=== PATIENT | male | born 1950 | race Caucasian/White ===

== ENCOUNTER 2018-07-15 06:19 | Day surgery (SDC) | payer OTHER ==
--- NOTE | 2018-07-14 12:20 | PREOPHP ---
DATE OF ADMISSION: 07/15/2018 HISTORY OF PRESENT ILLNESS: A 68-year-old patient is admitted for elective cataract surgery of the r ight eye. The patient has had decreased vision over the last year in that eye and in 2014, underwent cataract surgery of the left eye with excellent visual result. The patient denies any other history of eye disease or injury. PAST MEDICAL HISTORY: The patient does have history of noninsulin dependent diabetes mellitus, hyper cholesterolemia and neuropathy. CURRENT MEDICATIONS: Include: 1. Metformin. 2. Janumet. 3. Irbesartan. 4. . 5. Metoprolol. 6. Gabapentin. 7. Amlodipine. ALLERGIES: THERE ARE NO KNOWN ALLERGIES. PHYSICAL EXAMINATION: The visual acuity is 20/200 in the right eye and 20/20 in the left eye with sp ectacle correction. Slit lamp examination reveals a small nasal pterygium in the right eye. The pat ient also has anterior cortical and posterior subcapsular cataract of a diffuse nature in the right e ye. The left eye has a posterior chamber intraocular lens in appropriate position. Applanation chris metry is 14 mmHg. Examination of the retina is within normal limits without evidence of diabetic ret inopathy. DIAGNOSIS: Combined cortical and posterior subcapsular cataract, right eye. PLAN: Cataract extraction with lens implant, right eye. The risks and alternatives to the surgery h ave been discussed with the patient as well as the hope for improvement of visual acuity leading to g reater ability to perform activities of daily living. The patient understands this and agrees to pro ceed with surgery. Dictated By: DYLON GUTIERREZ/JOHN Conf#: [id number] DID#: [id number]
[2018-07-15] VITALS (10 sets, daily range): BP systolic 127–158; BP diastolic 61–74; PULSE 56–64; RESP 11–18; Ht 180.3 cm; Wt 88.1 kg
[~2018-07-15] VITALS: Ht 180.3 cm; Wt 88.1 kg
[~2018-07-15 06:19] MED LIST: ALPR0.254 PO; AMLO-218 PO; ATEN50TA PO; BENA40TA56 PO; CLON0.2T5 PO; DUTA0.5C PO; GABA300C16 PO; GLIP10TA14 PO; HYDR50TA3 PO; IBUP800T48 PO; IRBE300T13 PO; SITA1TAB7 PO; TAMS-14 PO
[2018-07-15] MEDS ORDERED: ASPI81TA52 PO (07:19)
[2018-07-15] MEDS ORDERED: METO-407 PO (07:20)
[2018-07-15] MEDS ORDERED: OXYB5TAB22 PO (07:20)
[2018-07-15] MEDS ORDERED: SITA1TAB5 PO (07:20)
[2018-07-15] MEDS ORDERED: HYDR100T25 PO (07:21)
[2018-07-15] MEDS ORDERED: GABA300C16 PO (07:21)
[2018-07-15] MEDS ORDERED: IRBE300T15 PO (07:22)
[2018-07-15] MEDS ORDERED: AMLO-147 PO (07:22)
[2018-07-15] MEDS ORDERED: GLIP10TA14 PO (07:23)
[2018-07-15] MEDS ORDERED: TAMS0.4C2 PO (07:23)
[2018-07-15] MEDS ORDERED: DICLOFENAC 0.1% 2.5 ML OPH OPER SCH (07:30)
[2018-07-15] MEDS ORDERED: CYCLOPENTOLATE/PHENYLEPH 2 ML OPH OPER SCH (07:30)
[2018-07-15] MEDS ORDERED: SOD CHLORIDE 0.9% 1,000 ML IV SCH (07:30)
[2018-07-15] MEDS ORDERED: MOXIFLOXACIN 0.5% 3 ML OPH OPER SCH (07:30)
[2018-07-15] MEDS ORDERED: TROPICAMIDE 1% 15 ML OPH OPER SCH (07:30)
[2018-07-15] MEDS ORDERED: CEFAZOLIN 1 GM INJ ONE (08:16)
[2018-07-15] MEDS ORDERED: CARBACHOL 0.01% 1.5 ML OPH INJ ONE (08:16)
[2018-07-15] MEDS ORDERED: LIDOCAINE 4% (MPF) 5 ML INJ ONE (08:16)
[2018-07-15] MEDS ORDERED: NA HYALURONATE/CHONDROITIN 0.5 ML SYG ONE (08:16)
[2018-07-15] MEDS ORDERED: DEXAMETHASONE 4 MG/ML 1 ML INJ ONE (08:16)
--- NOTE | 2018-07-15 08:25 | PREAC ---
Date/Time of Note Date/Time of Note DATE: 07/15/18 TIME: 08:24 Anesthesia Eval and Record Evaluation Time Pre-Procedure Interview DATE: 07/15/18 TIME: 08:24 Age 68 Sex male NPO: 8 hrs Preoperative diagnosis Right Eye Cataract Planned procedure Right Eye Cataract Extraction and IOL Implant Past Medical History Past Medical History: Includes Cardio: HTN Endo: Diabetes Surgery & Anesthesia Issues No known issue Meds Anticoagulation: No Beta Brigida within 24 hr: No Reason Beta Brigida not given: Pt. not on B-Brigida Reported Medications Glipizide* (Glipizide*) 10 Mg Tablet, 10 MG PO BID, TAB 07/15/18 Tamsulosin Hcl* (Tamsulosin Hcl*) 0.4 Mg Cap.er.24h, 0.4 MG PO HS, CAP 07/15/18 Irbesartan* (Irbesartan*) 300 Mg Tablet, 300 MG PO DAILY, TAB 07/15/18 Amlodipine Besylate* (Amlodipine Besylate*) 10 Mg Tablet, 10 MG PO DAILY, #30 TAB 07/15/18 Gabapentin* (Gabapentin*) 300 Mg Capsule, 300 MG PO TID, #90 CAP 07/15/18 Hydralazine Hcl* (Hydralazine Hcl*) 100 Mg Tablet, 100 MG PO TID, #90 TAB 07/15/18 Sitagliptin Phos/Metformin HCl (Janumet 50-1,000 mg Tablet) 1 Each Tablet, 1 EACH PO BID, TAB 07/15/18 Metoprolol Tartrate* (Lopressor*) 100 Mg Tablet, 100 MG PO BID, #60 TAB 07/15/18 Oxybutynin Chloride* (Ditropan* XL) 5 Mg Tabsr, 5 MG PO DAILY, TAB.SA 07/15/18 Aspirin (Low Dose Aspirin) 81 Mg Tablet.dr, 81 MG PO DAILY, #30 TAB 07/15/18 Discontinued Reported Medications Amlodipine Besylate* (Norvasc*) 10 Mg Tablet, 10 MG PO DAILY, TAB 08/31/14 Sitagliptin Phos-Metformin Hcl (Janumet) 50-1,000 Mg Tablet, 1 TAB PO BID, TAB 08/31/14 Ibuprofen* (Motrin*) 800 Mg Tab, 800 MG PO Q6, TAB 08/31/14 Hydrochlorothiazide* (Hydrochlorothiazide*) 50 Mg Tab, 50 MG PO DAILY, TAB 08/31/14 Glipizide* (Glipizide*) 10 Mg Tablet, 10 MG PO BID, TAB 08/31/14 Gabapentin* (Gabapentin*) 300 Mg Capsule, 300 MG PO QID, CAP 08/31/14 Tamsulosin Hcl* (Flomax*) 0.4 Mg Cap.er.24h, 0.4 MG PO DAILY, CAP 08/31/14 Clonidine Hcl* (Clonidine Hcl*) 0.2 Mg Tablet, 0.2 MG PO BID PRN for BLOOD PRESSURE SUPPORT, TAB 08/31/14 Benazepril Hcl* (Benazepril Hcl*) 40 Mg Tablet, 40 MG PO DAILY, TAB 08/31/14 Dutasteride* (Avodart*) 0.5 Mg Capsule, 0.5 MG PO DAILY, CAP 08/31/14 Irbesartan* (Avapro*) 300 Mg Tablet, 300 MG PO DAILY, TAB 08/31/14 Atenolol* (Atenolol*) 50 Mg Tablet, 50 MG PO BID, TAB 08/31/14 Alprazolam* (Alprazolam*) 0.25 Mg Tablet, 0.25 MG PO HS, TAB 08/31/14 Current Medications Diclofenac Sodium (Voltaren 0.1%) 1 drop Q5 MIN X 3 OPER Last administered on 07/15/18at 07:41; Admin Dose 1 DROP; Start 07/15/18 at 07:30; Stop 07/15/18 at 16:00 Tropicamide (Mydriacyl 1%) 1 drop Q5 MIN X3 OPER Last administered on 07/15/18at 07:41; Admin Dose 1 DROP; Start 07/15/18 at 07:30; Stop 07/15/18 at 16:00 Moxifloxacin HCl (Vigamox) 1 drop Q5 MIN X 3 OPER Last administered on 07/15/18at 07:40; Admin Dose 1 DROP; Start 07/15/18 at 07:30; Stop 07/15/18 at 1 6:00 Cyclopentolate/ Phenylephrine (Cyclomydril Oph 2 ml) 1 drop Q5 MIN X 3 OPER Last administered on 07/15/18at 07:40; Admin Dose 1 DROP; Start 07/15/18 at 07:30; Stop 1/29/19 at 16:00 Sodium Chloride 1,000 ml @ 25 mls/hr Q24H IV ; Start 07/15/18 at 07:30; Stop 07/15/18 at 16:00 Meds reviewed: Yes Allergies Coded Allergies: No Known Allergy (Unverified , 07/15/18) Allergies Reviewed: Yes Labs/Studies Labs Reviewed: Reviewed by anesthesiologist test: N/A Studies: ECG (NSR), CXR (n/a) Pre-procedure Exam Last vitals Vital Signs Date Temp Pulse Resp B/P (MAP) Pulse Ox O2 O2 Flow FiO2 Time Delivery Rate 07/15/18 97.7 64 18 158/74 97 Room Air 08:02 (102) Airway: Adequate mouth opening, Adequate thyromental dist Mallampati: Mallampati II Teeth: Normal Lung: Normal Heart: Normal ASA Physical Status ASA physical status: 3 Emergency: None Planned Anesthetic General/MAC: MAC Planned Pain Management Parenteral pain med Pre-operative Attestations Prior to commencing anesthesia and surgery, the patient was re-evaluated, there was verification of: *The patient's identity *The results of appropriate recent lab work and preoperative vital signs *The above evaluation not changing prior to induction *Anesthetic plan, risk benefits, alternative and complications discussed with patient/family; questions answered; patient/family understands, accepts and wishes to proceed. DANNY JOE MD Jul 15, 2018 08:25
[2018-07-15] MEDS ORDERED: EPHEDrine SULFATE 50 MG/5 ML SYG IV PRN (08:30)
[2018-07-15] MEDS ORDERED: HYDROmorphONE 1 MG/5 ML IV SYRINGE IV PRN ×2 (08:30)
[2018-07-15] MEDS ORDERED: hydrALAzine 20 MG INJ IV PRN (08:30)
[2018-07-15] MEDS ORDERED: FENTAnyl 50 MCG/ML VIAL IV PRN ×2 (08:30)
[2018-07-15] MEDS ORDERED: OXYCODONE/ACETAMINOPHEN (5/325) TAB PO PRN (08:30)
[2018-07-15] MEDS ORDERED: LABETALOL HCL 20MG INJ IV PRN (08:30)
[2018-07-15] MEDS ORDERED: ONDANSETRON 4 MG INJ IV PRN (08:30)
[2018-07-15] MEDS ORDERED: METOCLOPRAMIDE 10 MG INJ IV PRN (08:30)
[2018-07-15] MEDS ORDERED: PROPOFOL 20 ML ONE (08:46)
[2018-07-15] MEDS ORDERED: METOCLOPRAMIDE 10 MG INJ ONE (08:46)
[2018-07-15] MEDS ORDERED: ONDANSETRON 4 MG INJ ONE (08:46)
--- NOTE | 2018-07-15 09:13 | SIPON ---
Date/Time of Note Date/Time of Note DATE: 07/15/18 TIME: 09:12 Operative Report Preoperative Diagnosis cortical and posterior subcapsular cataract od Postoperative Diagnosis same Operation/Procedure Performed cataract extraction with lens implant od Surgeon dylon hussein assistant operations manager none Anesthesia: MAC Estimated blood loss: none Transfusion Required none Specimen none Grafts/Implants posterior chamber lens implant Complications none DYLON HUSSEIN MD Jul 15, 2018 09:13
--- NOTE | 2018-07-15 09:33 | PAC ---
Date/Time of Note Date/Time of Note DATE: 07/15/18 TIME: 09:33 Post-Anesthesia Notes Post-Anesthesia Note Last documented vital signs Vital Signs Date Temp Pulse Resp B/P (MAP) Pulse Ox O2 O2 Flow FiO2 Time Delivery Rate 07/15/18 97.7 64 18 158/74 97 Room Air 09:32 (102) Activity: WNL Respiratory function: WNL Cardiovascular function: WNL Mental status: Baseline Pain reasonably controlled: Yes Hydration appropriate: Yes Nausea/Vomiting absent: Yes DANNY JOE MD Jul 15, 2018 09:33
--- NOTE | 2018-07-15 10:33 | NUR ---
THE PT ALERT AND ORIENTED VITAL SIGNS WITHIN NORMAL LIMITS, NO PAIN OR DISCOMFORT REPORTED D/C INSTRUCTIONS PROVIDED TO PT AND FAMILY, VERBALIZED UNDERSTANDING AND READINESS TO GO HOME INCISION SITE: DRY CLEAN AND INTACT
--- NOTE | 2018-07-15 11:43 | OPR ---
DATE OF OPERATION: 07/15/2018 PREOPERATIVE DIAGNOSIS: Cortical and nuclear sclerotic cataract, right eye. POSTOPERATIVE DIAGNOSIS: Cortical and nuclear sclerotic cataract, right eye. OPERATION PERFORMED: Cataract extraction with lens implant, right eye. SURGEON: Dylon Thurman MD ANESTHESIA: Local standby. ANESTHESIOLOGIST: Umberto Monroe MD PROCEDURE: The patient was brought to the operating room and placed on the table with an IV in place and the patient attached to an enterprise applications manager. Oxygen was given via face mask. After some intravenous sedation was administered, local anesthesia was given using Xylocaine 2% with epinephrine, mixed with Marcaine 0.5%. This was given in a lid block and retrobulbar injection. The p atient was then prepped and draped in the usual sterile manner. A wire lid speculum was inserted between the lids of the right eye. A Superblade was used to enter th e anterior chamber at the corneoscleral limbus at the 10:30 o'clock position. A separate incision was made using a 3.0-mm keratome which entered the corneoscleral junction at the 12 o'clock position. Th rough this 3-mm opening, an irrigating cystotome was introduced into the anterior chamber. The chambe r was filled with Viscoat and an anterior capsulotomy was performed. Balanced salt solution was then used for hydrodissection of the lens. A phacoemulsification handpiece was then brought into the fiel d and introduced into the anterior chamber. The lens nucleus was emulsified using a deep groove and c racking the nucleus into quadrants. Following this, each quadrant was aspirated and emulsified at the pupillary margin. After this was completed, the irrigation/aspiration handpiece was brought to the field, introduced in to the posterior chamber, and the lens cortical material was removed. When this was completed, additi onal Viscoat was injected into the anterior and posterior chambers. The 3-mm opening had its internal lips enlarged, and then the posterior chamber intraocular lens elie uring 21.0 diopters ([employer] Model LI61AO) was then injected into the posterior c hamber using the lens injector system. After the leading haptic was introduced into the capsular bag and the lens optic was present in the center of the eye, the injector was removed and the trailing abdullahi ptic was grasped with non-toothed forceps and introduced into the capsular fold superiorly. A Sinskey hook was then used to rotate the intraocular lens so that the lips were oriented in the horizontal m eridian. One 10-0 nylon suture was placed across the wound. Prior to tying, the irrigation/aspiration handpiece was reintroduced into the anterior chamber to rem ove the Viscoat. Miochol was instilled to constrict the pupil, and then the 10-0 nylon suture was tie d. The ends were cut short and then the knot was buried. Then, 0.5 mL of dexamethasone and 0.5 mL of Ancef were injected into the sub-Tenon space in the infer ior fornix. Ciloxan drops were then placed on the surface of the eye. The speculum was removed and a patch was applied. The patient then left the operating room in satisfactory condition. Dictated By: DYLON GUTIERREZ/JOHN Conf#: [id number] DID#: [id number]
== END 2018-07-15 10:20 | disposition home or self-care (01) ==
LOC: SDS 06:19
PROVIDERS: ATTEND Ophthalmology
DX: H25.11 Age-related nuclear cataract, right eye (principal); I10 Essential (primary) hypertension; E11.9 Type 2 diabetes mellitus without complications; Z79.82 Long term (current) use of aspirin
CPT/HCPCS: 66984; 82962; 85610; 85730; J0690; J1100; J2405; J2765; Z7610; V2632